=== PATIENT | male | born 1955 | race Caucasian/White ===

== ENCOUNTER → 2017-11-26 | Outpatient (CLI) | payer BC | LOC: BMCIMAGING 14:58 | PROVIDERS: ATTEND Podiatrist Foot & Ankle Surgery | DX: M19.071 Primary osteoarthritis, right ankle and foot (principal); M19.072 Primary osteoarthritis, left ankle and foot ==

== ENCOUNTER → 2019-01-12 | Outpatient (CLI) | payer BC | LOC: BMCIMAGING 15:26 | PROVIDERS: ATTEND Family Medicine | DX: M25.531 Pain in right wrist (principal); S22.32XA Fracture of one rib, left side, initial encounter for closed fracture | CPT/HCPCS: 71101-PO ==